=== PATIENT | female | born 1960 | race Caucasian/White ===

== ENCOUNTER 2021-09-23 16:43 | Emergency (ER) | payer OTHER, BC ==
[2021-09-23] MEDS ORDERED: Sodium Chloride 0.9% 10 ML Syringe FLUSH PRN (17:11)
[2021-09-23] MEDS: HYDROmorphone 0.5 MG/0.5 ML Syringe IVPUSH ONE (17:20)
[2021-09-23] MEDS: Ondansetron 4 MG/2 ML SDV IVPUSH ONE (17:20)
[2021-09-23 17:43] LABS: ANION GAP 22.7 mmol/L (5-15)
[2021-09-23] MEDS: Lidocaine 1% 30 ML SDV INJECT ONE (19:22)
[2021-09-23] MEDS: Take Home: Acetaminophen/HYDROcodone 325-5 MG, 5 Tab Pack PO ONE (19:49)
== END 2021-09-23 19:58 | disposition home or self-care (01) ==
LOC: VM.ED 16:43
DX: S02.40CA Maxillary fracture, right side, initial encounter for closed fracture (principal); S01.81XA Laceration without foreign body of other part of head, initial encounter; S01.511A Laceration without foreign body of lip, initial encounter; V43.52XA Car driver injured in collision with other type car in traffic accident, initial encounter; Y92.410 Unspecified street and highway as the place of occurrence of the external cause
CPT/HCPCS: 12014; 70486; 80053; 85025; 96374; 96375; 99284; 99285-25; A9270-GY; J1170; J2405